=== PATIENT | male | born 1975 | race Caucasian/White ===

== ENCOUNTER 2022-05-17 19:44 | Observation (INO) ==
[2022-05-17 19:57] VITALS: BMI 39.1
--- NOTE | 2022-05-17 22:01 | DR.ABDMALE ---
HPI Time seen Time Seen by Provider: 05/17/22 22:01 PCP Primary Care Physician: RALF Complaint Chief Complaint:: pt c/o ruq pain since the Apr Mode of arrival Mode of Arrival: Ambulatory Timing Onset of Chief Complaint: 05/15/22 PMH PMH Past Medical History: Yes Past Medical History: Dyslipidemia, GERD and Hypertension Past Surgical History: No Surgical History: No History Family History History of Family Medical Conditions: Yes Family Medical History: Diabetes Mellitus, Cancer and Hypertension Social History Do you use any recreational Drugs:: No Lives Where: Home Infectious screening In the last 2 months have you had wt loss of >10#?: NO Have you had fever, night sweats or hemotysis?: No Have you traveled outside the country in the last 6 months?: No Isolation: Standard PE Vital Signs Vital Signs: Temp Pulse Resp BP Pulse Ox O2 Del Method 04/06/21 21:04 140/90 05/17/22 19:45 97.8 F 84 18 162/92 100 Room Air ROR Labs Reviewed Result Diagrams: 05/17/22 22:25 05/17/22 22:25 Laboratory: WBC 12.0 X10^3/uL (3.6-10.0) H 05/17/22 22:25 RBC 5.31 X10^6/uL (4.7-6.0) 05/17/22 22:25 Hgb 14.1 g/dL (13.5-18.0) 05/17/22 22:25 Hct 42.7 % (42.0-54.0) 05/17/22 22:25 MCV 80.3 fL (80.0-100.0) 05/17/22 22:25 MCH 26.6 pg (27.0-34.0) L 05/17/22 22:25 MCHC 33.1 g/dL (33.0-35.0) 05/17/22 22:25 RDW 13.2 % (11.6-16.5) 05/17/22 22:25 Plt Count 274 X10^3/uL (150.0-450.0) 05/17/22 22:25 MPV 7.6 fL (7.4-11.0) 05/17/22 22:25 Neut % (Auto) 75.3 % (42.0-75.0) H 05/17/22 22:25 Lymph % (Auto) 16.6 % (21.0-51.0) L 05/17/22 22:25 [place] % (Auto) 7.4 % (0.0-13.0) 05/17/22 22:25 Eos % (Auto) 0.3 % (0.9-2.9) L 05/17/22 22:25 Baso % (Auto) 0.4 % (0.2-1.0) 05/17/22 22:25 Neut # (Auto) 9.0 x10^3/uL (2.2-4.8) H 05/17/22 22:25 Lymph # (Auto) 2.0 X10^3/uL (1.3-2.9) 05/17/22 22:25 [place] # (Auto) 0.9 x10^3/uL (0.3-0.8) H 05/17/22 22:25 Eos # (Auto) 0.0 x10^3/uL (0.0-0.2) 05/17/22 22:25 Baso # (Auto) 0.0 X10^3/uL (0.0-0.1) 05/17/22 22:25 Absolute Nucleated RBC 0.0 /100WBC 05/17/22 22:25 Sodium 142 mmol/L (136-145) 05/17/22 22:25 Corrected Sodium TNP 05/17/22 22:25 Potassium 3.5 mmol/L (3.5-5.1) 05/17/22 22:25 Chloride 102 mmol/L (98-107) 05/17/22 22:25 Carbon Dioxide 30.2 mmol/L (21-32) 05/17/22 22:25 BUN 8 mg/dL (7-18) 05/17/22 22:25 Creatinine 1.23 mg/dL (0.70-1.30) 05/17/22 22:25 Est GFR (MDRD) Af Amer > 60 (>60) 05/17/22 22:25 Est GFR (MDRD) Non-Af > 60 (>60) 05/17/22 22:25 Glucose 93 mg/dL (65-99) 05/17/22 22:25 Calcium 8.8 mg/dL (8.5-10.1) 05/17/22 22:25 Corrected Calcium TNP 05/17/22 22:25 Total Bilirubin 0.70 mg/dL (0.2-1.0) 05/17/22 22:25 AST 23 Units/L (15-37) 05/17/22 22:25 ALT 28 Units/L (12-78) 05/17/22 22:25 Alkaline Phosphatase 64 Units/L (46-116) 05/17/22 22:25 Total Protein 7.7 g/dL (6.4-8.2) 05/17/22 22:25 Albumin 4.3 g/dL (3.4-5.0) 05/17/22 22:25 Globulin 3.4 g/dL (2.5-4.5) 05/17/22 22:25 Albumin/Globulin Ratio 1.3 Ratio (1.1-2.1) 05/17/22 22:25 Amylase 63 Units/L (25-115) 05/17/22 22:25 Lipase 62 Units/L (73-393) L 05/17/22 22:25 Opioid Opioid Risk Tool Age (Ruperto box if 16-45): Yes History of Preadolescent Sexual Abuse: No Total: 1 Total Score Risk Category: Low Risk Copyright: Juan Ramon RYDER predicting aberrant behaviors Discharge Plan Discharge Plan Patient Disposition: HOME, SELF-CARE Condition: Stable Prescriptions: No Action atorvastatin [Lipitor] 20 mg Tablet 20 mg PO QHS lisinopril 5 mg Tablet 5 mg PO DAILY amoxicillin-pot clavulanate [Augmentin] 875-125 mg tablet 1 tab PO BID Qty: 20 0RF acetaminophen-codeine 300-15 mg tablet 1 tab PO TID MDD 3 PRNQty: 10 0RF Health Concerns: Post Hospitalization: new medications and changes needed to prevent readmission or further decline. Pt educated and given instructions on all concerns. Plan of Treatment: Continue with present treatment and follow up plan. Pt is to keep follow up appointment as instructed and take medications as ordered. Orders to Discharge Patient Discharge Orders: Transfer (Routine); Ordered 05/18/22 Ordered By: JORDAN CLARKE Follow ups/Referrals Follow ups/Referrals: ZULEIMA ARAMBULA [Primary Care Provider] - 3 days
--- NOTE | 2022-05-17 22:33 | CT ---
HISTORYComplaint ruq pain since the UDYABDOMEN/PELVIS W/O CONCOMPARISONNoneTECHNIQUENon-contrasted axial CT images of the abdomen and pelvis were obtained and reformatted into coronal and sagittal planes for further evaluation.Radiation dose: 492.10 mGy-cm total DLPFINDINGSLung bases are clear.Stomach appears normal.Solid visceral organs of the upper abdomen are unremarkable.Edema along the margins of the gallbladder.No calcified gallstone identified.Unremarkable appearance of the kidneys.No hydronephrosis, hydroureter or ureteral calculus.Unremarkable appearance of the urinary bladder.Normal appearance of the small and large bowel.Reproductive structures are unremarkable.No evidence of acute appendicitis.No pneumoperitoneum.No significant fluid collection.No adenopathy.No acute osseous abnormality.IMPRESSIONEdema along the margins of the gallbladder. No calcified gallstone identified. Findings are concerning for acute cholecystitis.Electronically signed by: Anson Christy (May 17, 2022 22:31:10)
[2022-05-17 22:44] LABS: BASOPHILS % (AUTO) 0.4 % (0.2-1.0); EOSINOPHILS % (AUTO) 0.3 % (0.9-2.9); HEMATOCRIT 42.7 % (42.0-54.0); HEMOGLOBIN 14.1 g/dL (13.5-18.0); LYMPHOCYTES % (AUTO) 16.6 % (21.0-51.0); MEAN CORPUSCULAR HEMOGLOBIN 26.6 pg (27.0-34.0); MEAN CORPUSCULAR HGB CONC 33.1 g/dL (33.0-35.0); MEAN CORPUSCULAR VOLUME 80.3 fL (80.0-100.0); MEAN PLATELET VOLUME 7.6 fL (7.4-11.0); MONOCYTES # (AUTO) 0.9 x10^3/uL (0.3-0.8); MONOCYTES % (AUTO) 7.4 % (0.0-13.0); NEUTROPHILS % (AUTO) 75.3 % (42.0-75.0); RED BLOOD COUNT 5.31 X10^6/uL (4.7-6.0); RED CELL DISTRIBUTION WIDTH 13.2 % (11.6-16.5)
[2022-05-17 22:54] LABS: ALANINE AMINOTRANSFERASE 28 Units/L (12-78); ALBUMIN 4.3 g/dL (3.4-5.0); ALKALINE PHOSPHATASE 64 Units/L (46-116); AMYLASE 63 Units/L (25-115); ASPARTATE AMINO TRANSFERASE 23 Units/L (15-37); BLOOD UREA NITROGEN 8 mg/dL (7-18); CALCIUM 8.8 mg/dL (8.5-10.1); CARBON DIOXIDE 30.2 mmol/L (21-32); CHLORIDE 102 mmol/L (98-107); CREATININE 1.23 mg/dL (0.70-1.30); LIPASE 62 Units/L (73-393); SODIUM 142 mmol/L (136-145); TOTAL PROTEIN 7.7 g/dL (6.4-8.2); eGFR NON BLACK RACES > 60 (>60)
[2022-05-18] MEDS ORDERED: ZOFRAN INJ 4 MG VIAL IVP PRN ×2 (00:11→15:23)
[2022-05-18] MEDS ORDERED: LEVAQUIN PREMIX IV 500 MG 500 MG/100 ML BAG IV ONE ×2 (00:11→00:33)
[2022-05-18] MEDS ORDERED: D5 1/2 NS 1,000 ML 1,000 ML IV ONE (00:33)
[2022-05-18] MEDS: D5 1/2 NS 1,000 ML 1,000 ML IV SCH ×3 (00:53→19:46)
[2022-05-18 01:22] LABS: BILIRUBIN,URINE NEGATIVE (NEGATIVE); BLOOD/HEMOGLOBIN,URINE 3+ (NEGATIVE); GLUCOSE, URINE NEGATIVE (NEGATIVE); KETONES,URINE NEGATIVE (NEGATIVE); LEUKOCYTE ESTERASE ,URINE NEGATIVE (NEGATIVE); NITRITES,URINE NEGATIVE (NEGATIVE); PROTEIN,URINE NEGATIVE (NEGATIVE); UROBILINOGEN,URINE NORMAL (NORMAL)
[2022-05-18 01:27] LABS: APPEARANCE,URINE CLEAR (CLEAR); BACTERIA,URINE NEGATIVE /HPF (NEGATIVE); COLOR,URINE STRAW (YELLOW); RBC,URINE NONE SEEN /HPF (0-3); SQUAMOUS EPITHELIAL CELL,UR RARE /HPF (NEGATIVE)
[2022-05-18] MEDS: DILAUDID INJ IVP PRN ×6 (02:04→19:52)
--- NOTE | 2022-05-18 09:57 | EKG ---
Test Reason : PRE OP Blood Pressure : */* mmHG Vent. Rate : 60 BPM Atrial Rate : 60 BPM P-R Int : 166 ms QRS Dur : 94 ms QT Int : 410 ms P-R-T Axes : 53 55 42 degrees QTc Int : 410 ms Normal sinus rhythm Normal ECG No previous ECGs available Confirmed by Alcon Velasquez ([id number]) on 05/18/2022 10:26:35 AM Referred By: Confirmed By: Alcon Velasquez
[2022-05-18] MEDS ORDERED: DIPRIVAN VIAL 20 ML ONE (12:53)
[2022-05-18] MEDS ORDERED: OFIRMEV IV 1000 MG VIAL 1,000 MG/100 ML VIAL IV ONE (12:53)
[2022-05-18] MEDS ORDERED: VERSED ONE (12:53)
[2022-05-18] MEDS ORDERED: BRIDION ONE (12:53)
[2022-05-18] MEDS ORDERED: FENTANYL VIAL INJ 100 mcg ONE ×2 (12:53→14:15)
[2022-05-18] MEDS ORDERED: ZEMURON 100 MG VIAL ONE (12:54)
[2022-05-18] MEDS ORDERED: TORADOL 30 MG VIAL ONE (12:54)
[2022-05-18] MEDS ORDERED: ZOFRAN INJ 4 MG VIAL ONE (12:54)
[2022-05-18] MEDS ORDERED: REGLAN INJ 10 MG VIAL ONE (12:54)
[2022-05-18] MEDS ORDERED: PEPCID 20 MG VIAL ONE (12:54)
[2022-05-18] MEDS ORDERED: XYLOCAINE 2 % (PLAIN) ONE (12:57)
[2022-05-18] MEDS ORDERED: BACTROBAN TOPICAL OINT ONE (13:04)
[2022-05-18] MEDS ORDERED: LR 1,000 ML IV 1,000 ML IV ONE (13:14)
[2022-05-18] MEDS ORDERED: NS 100 ML IV 100 ML ONE (13:14)
[2022-05-18] MEDS ORDERED: ANCEF VIAL 1 GRAM ONE (13:14)
[2022-05-18] MEDS ORDERED: SUPRANE ONE (13:55)
[2022-05-18] MEDS ORDERED: REGLAN INJ 10 MG VIAL IVP PRN (15:23)
[2022-05-18] MEDS ORDERED: BARHEMSYS INJ IVP PRN (15:23)
[2022-05-18] MEDS ORDERED: BENADRYL INJ 50 MG VIAL IVP PRN (15:23)
[2022-05-18] MEDS ORDERED: DILAUDID INJ ONE (15:42)
[2022-05-19] MEDS: DILAUDID INJ IVP PRN ×2 (00:20→07:51)
[2022-05-19] MEDS: D5 1/2 NS 1,000 ML 1,000 ML IV SCH ×2 (01:21→02:55)
[2022-05-19 05:20] LABS: BASOPHILS % (AUTO) 0.2 % (0.2-1.0); EOSINOPHILS % (AUTO) 0.5 % (0.9-2.9); HEMATOCRIT 37.8 % (42.0-54.0); HEMOGLOBIN 12.8 g/dL (13.5-18.0); LYMPHOCYTES # (AUTO) 1.8 X10^3/uL (1.3-2.9); LYMPHOCYTES % (AUTO) 19.5 % (21.0-51.0); MEAN CORPUSCULAR HEMOGLOBIN 27.3 pg (27.0-34.0); MEAN CORPUSCULAR HGB CONC 33.8 g/dL (33.0-35.0); MEAN CORPUSCULAR VOLUME 80.7 fL (80.0-100.0); MEAN PLATELET VOLUME 7.8 fL (7.4-11.0); MONOCYTES # (AUTO) 0.9 x10^3/uL (0.3-0.8); MONOCYTES % (AUTO) 10.1 % (0.0-13.0); NEUTROPHILS # (AUTO) 6.3 x10^3/uL (2.2-4.8); NEUTROPHILS % (AUTO) 69.7 % (42.0-75.0); RED BLOOD COUNT 4.69 X10^6/uL (4.7-6.0); RED CELL DISTRIBUTION WIDTH 13.3 % (11.6-16.5); WHITE BLOOD COUNT 9.1 X10^3/uL (3.6-10.0)
[2022-05-19 05:31] LABS: ALANINE AMINOTRANSFERASE 43 Units/L (12-78); ALBUMIN 3.3 g/dL (3.4-5.0); ALKALINE PHOSPHATASE 56 Units/L (46-116); ASPARTATE AMINO TRANSFERASE 40 Units/L (15-37); BLOOD UREA NITROGEN 8 mg/dL (7-18); CARBON DIOXIDE 30.5 mmol/L (21-32); CHLORIDE 104 mmol/L (98-107); COR CA(FOR HYPOALB) 8.6 mg/dL (8.5-10.1); COR NA(FOR HYPERGLY) 143 mmol/L (136-145); CREATININE 1.17 mg/dL (0.70-1.30); SODIUM 143 mmol/L (136-145); TOTAL PROTEIN 6.5 g/dL (6.4-8.2); eGFR NON BLACK RACES > 60 (>60)
[2022-05-19] MEDS ORDERED: LEVAQUIN PREMIX IV 500 MG 500 MG/100 ML BAG IV SCH (09:00)
[2022-05-19 10:09] VITALS: BP 133/82
--- NOTE | 2022-05-21 14:15 | US ---
HISTORYACUTE CHOLECYCTITIS, RUQ PAINSTUDYGALL BLADDERCOMPARISONCT abdomen and pelvis 05/17/2022TECHNIQUESixty-nine images made by the it associate. Anaya scale and color-flow images of the right upper quadrant were obtained.FINDINGSThe liver has normal echogenicity and size. No mass or intrahepatic biliary duct dilatation is present. The intrahepatic inferior vena cava was imaged.The portal vein is patent with blood flow toward the liver. The hepatic artery was patent. The visualized hepatic veins are patent with blood flow toward the right atrium.The pancreatic head and proximal body are unremarkable. The remaining pancreas is not well identified due to overlying bowel gas.Echogenic areas with shadowing are present compatible with gallstones. Gallbladder wall thickening is present measuring 6 mm.Gallbladder wall thickening is a nonspecific finding. It can be see with many acute or chronic processes. The most common acute etiology is acute cholecystitis. The most common chronic etiology is chronic cholecystitis. A nuclear medicine hepatobiliary scan can help differentiate between these two etiologies. There is no pericholecystic fluid. No extrahepatic biliary duct dilatation; common duct is normal.The right kidney is normal in size and echogenicity. No hydronephrosis.IMPRESSION1. Cholelithiasis2. Nonspecific gallbladder wall thickeningElectronically signed by: Gurwinder Moses (May 21, 2022 14:14:37)
== END 2022-05-19 11:17 | disposition home or self-care (01) ==
LOC: ER 19:44 → MED/SURG 19:44
PROVIDERS: ADMIT Surgery; ATTEND Surgery
DX: I10 Essential (primary) hypertension; R10.13 Epigastric pain; K21.9 Gastro-esophageal reflux disease without esophagitis; R10.11 Right upper quadrant pain; Z86.19 Personal history of other infectious and parasitic diseases; K80.00 Calculus of gallbladder with acute cholecystitis without obstruction; E78.2 Mixed hyperlipidemia